=== PATIENT | female | born 1990 | race Caucasian/White ===

== ENCOUNTER 2025-03-15 10:08 | Outpatient (CLI) | payer OTHER, MEDICAID | END 2025-03-15 10:09 | disposition home or self-care (01) | LOC: CSHRAD 10:08 | PROVIDERS: ATTEND Neurological Surgery | DX: M54.2 Cervicalgia (principal); M54.6 Pain in thoracic spine; M43.9 Deforming dorsopathy, unspecified | CPT/HCPCS: 72050; 72072 ==